=== PATIENT | male | born 1950 | race Two or more races ===

== ENCOUNTER 2017-11-20 09:09 | Outpatient (CLI) | payer MEDICARE, BC ==
[~2017-11-20 09:09] MED LIST: advil PO; antibiotic PO
[2017-11-20 09:18] VITALS: BP 152/86
[2017-11-20] MEDS ORDERED: NO MEDICATION (15:41)
--- NOTE | 2017-11-23 15:26 | GI Progress Note ---
Assessment/Plan Problems: (1) Elevated CEA ICD Codes: R97.0 - Elevated carcinoembryonic antigen [CEA] SNOMED: 002666312 (2) H. pylori infection ICD Codes: A04.8 - Other specified bacterial intestinal infections SNOMED: 434854396 (3) Anemia ICD Codes: D64.9 - Anemia, unspecified SNOMED: 238261321 (4) Weight loss ICD Codes: R63.4 - Abnormal weight loss SNOMED: [id number], [id number] Status: stable Status Narrative Seen with Dr. Hoang. Assessment/Plan SUMMARY OF FINDINGS: 1. Gastritis, status post biopsy. 2. Two polyps removed, see above for details. 3. Internal hemorrhoids. 4. Diverticulosis. weight loss of [address] RTC after imaging studies Note this is a late entry, patient was seen and assessed on 11/20/17. Subjective Gastrointestinal/Abdominal: Reports: no symptoms Subjective the patient states that food feels like it gets "stuck" in his esophagus 10-15 minutes after a meal. Objective T 98.0 BP 152/86 P 72 98 RA HT 5'8 WT 198 General Appearance: WD/WN, no apparent distress, alert Cardiovascular: normal rate Respiratory/Chest: normal breath sounds, no respiratory distress Abdominal Exam: normal bowel sounds, non tender, soft Extremities: normal range of motion, non-tender Cary Short N.P. Nov 23, 2017 15:26
== END 2017-11-20 09:42 | disposition home or self-care (01) ==
LOC: EDBD → PAN 09:09
DX: R97.0 Elevated carcinoembryonic antigen [CEA] (principal); A04.8 Other specified bacterial intestinal infections; D64.9 Anemia, unspecified; R63.4 Abnormal weight loss; K29.70 Gastritis, unspecified, without bleeding; K63.5 Polyp of colon; K64.8 Other hemorrhoids; K57.90 Diverticulosis of intestine, part unspecified, without perforation or abscess without bleeding
CPT/HCPCS: 99212

== ENCOUNTER 2017-11-23 07:58 | Outpatient (CLI) | payer MEDICARE, BC ==
[~2017-11-23 07:58] MED LIST changes: +NO MEDICATION
--- NOTE | 2017-11-23 11:49 | Diagnostic Imaging Report ---
Clinical Indication: 66-year-old male outpatient with chronic cough x1 year, history of weight loss, abdominal distention Technique: IV administration nonionic contrast. Spiral acquisition obtained through the chest. Multiplanar reconstructions generated. Total dose length product 2026 mGycm. CTDIvol(s) 8, 105, 19, 19 mGy. Dosages inclusive of CT abdomen and pelvis performed the same time. Dose reduction achieved using automated exposure control Comparison: none Findings: 5 mm irregular subpleural opacity is seen in the posterior medial right upper lobe, image 15 series 6. A 4 mm ovoid nodule is seen in the right upper lobe posteriorly, image 19 series 6. Faint 4 mm opacity is seen in the posterior left upper lobe, image 8 of series 6 Linear opacities at both lung bases likely represent atelectasis or scarring. There is also posterior dependent atelectatic changes bilaterally. No acute infiltrates. No effusions. No congestion. The heart size is upper limits of normal. No pericardial effusion. A few prominent but not frankly enlarged mediastinal lymph nodes are evident. The thyroid contains multiple low-attenuation nodules bilaterally, largest on the left likely measuring up to 2 mm in diameter. These are not well demonstrated due to some obscuration by streak artifact from the adjacent contrast filled vein. The bones are unremarkable. Please refer to separate abdominal pelvic CT report for abdominal findings Impression: Bilateral small lung nodules, as described. If there is no significant smoking history or risk factors for lung carcinoma, no further follow-up necessary. If there are significant risk factors, then short interval follow-up CT in 6-12 months is recommended No definite acute process Bilateral low-attenuation thyroid nodules. Recommend thyroid ultrasound for better characterization Please refer to separate abdomen and pelvis CT report for abdominal and pelvic findings The CT scanner at [facility] is accredited by the [employer] and the scans are performed using protocols designed to limit radiation exposure to as low as reasonably achievable to attain images of sufficient resolution adequate for diagnostic evaluation.
--- NOTE | 2017-11-23 12:24 | Diagnostic Imaging Report ---
Clinical Indication: Weight loss, abdominal distention Technique: Patient given oral contrast. IV administration nonionic contrast. Venous phase spiral acquisition obtained through the abdomen and pelvis. Multiplanar reconstructions were generated. Total dose length product 2026.62 mGycm. CTDIvol(s) 19.35,19.35 mGy. Dose reduction achieved using automated exposure control Comparison: none Findings: Very unusual finding of multiple cysts versus multiseptated cystic mass centered in the left upper quadrant. The various components of this include a large partially septated cystic mass within the splenic parenchyma of the lower pole which measures 7 cm diameter. Contiguous with this are multiple cystic masses which extend outward from the splenic parenchyma and occupy most of the left upper quadrant. These have discernible enhancing rims and some rim calcifications. Cystic masses are also seen extending to the greater curvature of the stomach and are contiguous with and inseparable from it the largest individual cyst is U-shaped, surrounds the spleen, measures approximately 10 cm transverse by 10 cm AP by 20 cm craniocaudad. The overall conglomerate of cystic masses measures approximately 21 cm AP by 17 cm transverse by 26 cm craniocaudad. There is also fluid attenuation material within the peritoneal space which does not appear clearly loculated and does not exhibit septations or rim enhancement, and is therefore probably free fluid although the intraperitoneal fluid collections are contiguous with the left upper quadrant cystic masses. There are small bilateral inguinal hernias which contain a small amount of the above material in the proximal extensions. The appendix is dilated, filled with low-attenuation material, measures approximately 15 mm in diameter. It demonstrates a tiny calcification near the tip. The appendiceal wall is somewhat thickened. There is no periappendiceal inflammation. Small bowel loops are displaced to the right by the above-mentioned process. There are nondistended, and contrast reaches as far as the hepatic flexure of colon. The proximal descending colon and splenic flexure are also displaced to the right. There is colonic diverticulosis. No evidence of diverticulitis. The distal esophagus is unremarkable. The duodenum is unremarkable. The liver, gallbladder, bile ducts, pancreas, adrenals are unremarkable. The kidneys demonstrate bilateral cysts as well as bilateral subcentimeter low-attenuation lesions which are too small to characterize, most likely benign simple cysts. No pelvic mass or adenopathy. No retroperitoneal mass or adenopathy. The bladder wall is equivocally mildly thickened, which is probably an artifact of under distention. The bones are unremarkable except for mild degenerative changes of the right hip Impression: Multiple cysts with well-defined enhancing rims and rim calcification occupying primarily the left upper quadrant peritoneal space, but also subcapsular and intraparenchymal within the spleen and contiguous with the greater curvature of the stomach. Associated free intraperitoneal fluid attenuation material versus fluid. 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 Other differential considerations include mucinous cystadenocarcinoma of uncertain origin, lymphangioma, much less likely infectious process such as hydatid cyst Colonic diverticulosis Bilateral renal cysts. Bilateral subcentimeter low-attenuation renal lesions, too small to characterize, most likely benign simple cysts. No further follow-up necessary Small bilateral inguinal hernias containing a small amount of intraperitoneal fluid or material Incidental finding of mild right hip degenerative change Images reviewed in person with Dr. Hoang at the time of interpretation The CT scanner at [facility] is accredited by the [employer] and the scans are performed using protocols designed to limit radiation exposure to as low as reasonably achievable to attain images of sufficient resolution adequate for diagnostic evaluation.
== END 2017-11-23 09:58 | disposition home or self-care (01) ==
LOC: CAT 07:58 → EDBD 09:00 → CAT 09:58
DX: R63.4 Abnormal weight loss (principal); E04.1 Nontoxic single thyroid nodule; R91.8 Other nonspecific abnormal finding of lung field; K40.20 Bilateral inguinal hernia, without obstruction or gangrene, not specified as recurrent; N28.1 Cyst of kidney, acquired; K57.30 Diverticulosis of large intestine without perforation or abscess without bleeding
CPT/HCPCS: 71260; 74177; Q9967

== ENCOUNTER 2017-11-27 09:35 | Outpatient (CLI) | payer MEDICARE, BC ==
--- NOTE | 2017-11-27 20:00 | Progress Note ---
DATE: 11/27/2017 SUBJECTIVE: The patient is a very pleasant 66-year-old male, who was referred to me for evaluation of weight loss. We did a workup with endoscopy and colonoscopy and also CT of the abdomen and pelvis. The endoscopy showed evidence of H. pylori gastritis. 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 I had discussion with two surgeons over the phone, one was Dr. Singh at [facility] and one was Dr. Farzad Mendoza, colorectal surgeon at [facility]. Dr. Mendoza and Dr. Singh deferred this procedure to a tertiary center. Dr. Mendoza also had the same impression that this surgery needs to be done at a tertiary center. He actually gave me phone number for Dr. Bashir, [facility], who specializes in this kind of surgery. So, I gave the phone number to the patient, a copy of his CAT scan and want him to call Dr. Bashir and follow up with him for surgery for further management of his diagnosis. The patient was informed of the diagnosis and risks and he was encouraged to follow up as soon as possible for further management. In terms of his H. pylori treatment, given this diagnosis at this time, we decided to hold off on treating until the patient goes, see the surgeon, and come back to see what is the plan and we will have him come back in a month for followup. I want to thank, Dr. Héctor Lima, for this kind referral. Dez Hoang M.D. DR: RAJAT JOB#: [id number] CC: Héctor Lima M.D.; Fax#: [phone]
== END 2017-11-27 10:08 | disposition home or self-care (01) ==
LOC: PAN 09:35
DX: R63.4 Abnormal weight loss (principal); K29.70 Gastritis, unspecified, without bleeding; B96.81 Helicobacter pylori [H. pylori] as the cause of diseases classified elsewhere
CPT/HCPCS: 99201